=== PATIENT | male | born 1970 | race Caucasian/White ===

== ENCOUNTER 2017-06-13 12:17 | Emergency (ER) | payer BC, SELFPAY ==
[2017-06-13 12:18] VITALS: BP 138/83; PULSE 79; RESP 16; TEMP 36.6; O2SAT 98; BMI 21.7
--- NOTE | 2017-06-13 12:32 | RAD_ITS ---
STUDY: X-RAY - LEFT ANKLE REASON FOR EXAM: Male, 47 years old. Bruising and swelling following a tripping injury. TECHNIQUE: 3 view(s) of the ankle. COMPARISON: None. FINDINGS: Normal visualized distal tibia and fibula. Nondisplaced avulsion type fracture of the lateral malleolus with overlying soft tissue swelling. Normal tibiotalar articulation and ankle mortise. Normal visualized talus and calcaneus. The visualized subtalar, talonavicular, calcaneocuboid and tarsal articulations are normal. Soft tissue swelling. RAD/Ankle min 3 Views IMPRESSION: Nondisplaced avulsion type fracture of the lateral malleolus with overlying soft tissue swelling. Electronically Signed: Red Abarca MD at 13:01 EDT Tel [phone], Service support ,
--- NOTE | 2017-06-13 12:57 | ED.DCSUM_ITS ---
- ER Visit Summary Date of Service: 06/13/17 Chief Complaint: Left ankle injury History of Present Illness: The patient is a 47 M who rolled his left ankle jumping over a fence last evening. He has had progressive swelling and some slight discoloration this morning. He is able to ambulate but walks with a significant limp. He denies paresthesias. Physical Examination: Vital signs are unremarkable. Head and neck examination is unremarkable with no sign of trauma. Heart is regular rate and rhythm. Lung sounds are clear. Lower external examination reveals tenderness around the left ankle, lateral greater than medial. There is moderate edema noted. There is no tenderness over the metatarsals or the proximal fibula. There is early ecchymosis noted over the lateral portion of the left ankle. Patient has strong distal pulses. Test Results: Left ankle x-rays reveal a nondisplaced avulsion fracture the lateral malleolus with overlying soft tissue swelling. Emergency Department Course and Treatment: Patient declined anything for pain with emergency room. At this time he is refusing a stirrup splint. He wishes only have an Pb wrap placed. Treatment Plan: Patient will be given Dr. Ellington's information for follow-up as needed. Disposition: Discharge Impression: Avulsion fracture lateral malleolus left ankle This note was generated with [employer] dictation software. It may contain incorrect words, spelling, and punctuation that were not noted in review of the chart prior to signing ED Disposition - Plan for ED Patient: Chief Complaint: Lower Extremity Injury
--- NOTE | 2017-06-13 13:43 | ED.DEP ---
ED Disposition - Plan for ED Patient: Disposition: Home or Assisted Living Chief Complaint: Lower Extremity Injury Instructions: ED Fx Ankle Lateral Malleolus Referrals: Domenico Ellington DO [STAFF PHYSICIAN] - As Needed
[2017-06-13 14:00] VITALS: BP 133/83; PULSE 80; RESP 16; O2SAT 97
== END 2017-06-13 14:03 | disposition home or self-care (01) ==
PROVIDERS: Emergency Provider Emergency Medicine
DX: S82.65XA Nondisplaced fracture of lateral malleolus of left fibula, initial encounter for closed fracture (principal); Z72.0 Tobacco use; X50.1XXA Overexertion from prolonged static or awkward postures, initial encounter; Y93.39 Activity, other involving climbing, rappelling and jumping off; Y92.89 Other specified places as the place of occurrence of the external cause; Y99.8 Other external cause status
CPT/HCPCS: 73610; 99282